=== PATIENT | female | born 1940 | race Caucasian/White ===

== ENCOUNTER 2018-05-31 13:19 | Emergency (ER) | payer SELFPAY ==
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
[2018-05-31 16:47] VITALS: BP 150/58
--- NOTE | 2018-06-01 15:45 | Diagnostic Imaging Report ---
JOCE VILLALPANDO [facility] [id number] [facility] [address] [address] Report Submission Date: May 31, 2018 3:31:03 PM CDT Patient Study Name: CUCO LUND Date: May 31, 2018 2:31:06 PM CDT Modality Type: DX Gender: F Description: CHEST : 38 Institution: [facility] Physician: JOCE VILLALPANDO Bilateral ribs with chest radiograph History: Rib pain Findings: Included chest radiograph demonstrates thoracolumbar scoliosis. There is calcification in the thoracic aorta. There is no rib fracture or abnormal bone destruction. Impression: No evidence of rib fracture. Electronically signed on May 31, 2018 3:31:03 PM CDT by: Zack UMANZOR
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
== END 2018-05-31 16:45 ==
LOC: ED 13:19
DX: S82.891A Other fracture of right lower leg, initial encounter for closed fracture (principal); V49.50XA Passenger injured in collision with unspecified motor vehicles in traffic accident, initial encounter; Y92.9 Unspecified place or not applicable; Y93.9 Activity, unspecified; Y99.9 Unspecified external cause status
CPT/HCPCS: 71101; 73610; 99284